=== PATIENT | male | born 1955 | race Caucasian/White ===

== ENCOUNTER 2018-07-10 19:29 | Emergency (ER) | payer BC, OTHER ==
--- NOTE | 2018-07-10 19:36 | PDOC ---
History of Present Illness - General History Source: Patient Exam Limitations: No Limitations - History of Present Illness Initial Comments: 07/10/18 20:31 The patient is a 62 year old male, with a significant PMH of HLD and HTN, who presents to the emergency department for evaluation of an abrasion to his head that occured today. The patient states he was taking out the trash when he scraped his head on a tree branch. He reports mild bleeding but no pain. The patient states he applied pressure to the area and came in to the ER for further evaluation. The patient denies chest pain, shortness of breath, headache and dizziness. Denies fever, chills, nausea, vomit, diarrhea and constipation. Denies dysuria, frequency, urgency and hematuria. PAST MEDICAL HISTORY: no significant history PAST SURGICAL HISTORY: triple bypass surgery FAMILY HISTORY: no pertinent history SOCIAL HISTORY: Pt lives with family and is employed. MEDICATIONS: reviewed ALLERGIES: As per nursing notes Adult ROS General: No fevers or chills, no weakness, no weight loss HEENT: No change in vision. No sore throat,. No ear pain CardioVascular: No chest pain or shortness of breath Respiratory:No cough, or wheezing. Gastrointestinal: no nausea, vomiting, diarrhea or constipation, No rectal bleeding Genitourinary: No dysuria, hematuria, or frequency Musculoskeletal: No joint or muscle pain or swelling Neurologic: No headache, vertigo, dizziness or loss of consciousness Psychiatric: nor depression Skin:+Laceration to the top of the head Endocrine: no increased thirst or abnormal weight change Allergic: no skin or latex allergy All other systems reviewed and normal Basic PE GENERAL: The patient is awake, alert, and fully oriented, in no acute distress. HEAD: Normal with no signs of trauma. EYES: Pupils equal, round and reactive to light, extraocular movements intact, sclera anicteric, conjunctiva clear. EXTREMITIES: Normal range of motion, no edema. NEUROLOGICAL: Normal speech, normal gait. PSYCH: Normal mood, normal affect. SKIN: +Small superficial laceration 1 cm to the top of the head with minimal bleeding. No other injury <MikeEmperatriz - Last Filed: 07/10/18 20:31> - General History Source: Patient Exam Limitations: No Limitations - History of Present Illness Initial Comments: 07/10/18 20:36 A portion of this note was documented by scribe services under my direction. I have reviewed the details of the note, within reason, and agree with the documentation. The case summary and management plan written by me. Procedure note laceration repair with Dermabond Laceration was cleaned and then closed with Dermabond patient tolerated well Assessment and plan: This is a 62-year-old male who comes in complaining of a small laceration to the top of his had laceration was closed with Dermabond patient was updated on his tetanus and discharged home <Raul David I - Last Filed: 07/10/18 20:36> - General Chief Complaint: Laceration Stated Complaint: HEAD LAC Time Seen by Provider: 07/10/18 19:36 Past History <Emperatriz Mckeon - Last Filed: 07/10/18 20:31> <Raul David I - Last Filed: 07/10/18 20:36> - Past Medical History Allergies/Adverse Reactions: Allergies Allergy/AdvReac Type Severity Reaction Status Date / Time No Known Allergies Allergy Unverified 07/10/18 19:30 Home Medications: Ambulatory Orders Amlodipine Besylate [Norvasc -] 5 mg PO DAILY 07/10/18 Aspirin [Aspirin EC] 81 mg PO DAILY 07/10/18 Atorvastatin Ca [Lipitor] 20 mg PO HS 07/10/18 Metoprolol Succinate [Toprol Xl] 50 mg PO DAILY 07/10/18 *Physical Exam - Vital Signs Last Vital Signs Temp Pulse Resp BP Pulse Ox 98.4 F 85 16 130/104 H 96 07/10/18 19:46 07/10/18 19:46 07/10/18 19:46 07/10/18 19:46 07/10/18 19:46 <Emperatriz Mckeon - Last Filed: 07/10/18 20:31> ED Treatment Course - Medications Given in the ED: ED Medications Discontinued Medications Generic Name Dose Route Start Last Admin Trade Name Freq PRN Reason Stop Dose Admin Diphtheria/Tetanus/Acell Pertussis 0.5 ml 07/10/18 20:24 07/10/18 20:29 Boostrix - IM 07/10/18 20:25 0.5 ml ONCE ONE Administration <Emperatriz Mckeon - Last Filed: 07/10/18 20:31> *DC/Admit/Observation/Transfer - Attestations Scribe Attestion: 07/10/18 20:32 Documentation prepared by Emperatriz Mckeon, acting as internist medical doctor md for Raul David MD. <Emperatriz Mckeon - Last Filed: 07/10/18 20:31> - Discharge Dispostion Decision to Admit order: No <Raul David I - Last Filed: 07/10/18 20:36> Diagnosis at time of Disposition: Scalp laceration - Discharge Dispostion Disposition: HOME Condition at time of disposition: Stable - Referrals Referrals: Larry Krishnan MD [Primary Care Provider] - - Patient Instructions Printed Discharge Instructions: DI for Laceration Repair With Dermabond Additional Instructions: Tylenol or Motrin as needed for pain. Read over and follow Dermabond discharge instructions. Return to the emergency department immediately with ANY new, persistent or worsening symptoms. Continue any medications as previously prescribed by your physician. You should follow up with your primary doctor as soon as possible regarding today's emergency department visit. . Please make sure your doctor reviews the results of your emergency evaluation. Thank you for coming to the Emergency Department today for your care. It was a pleasure to see you today. Please note that your evaluation is INCOMPLETE until you follow-up with your doctor. - Post Discharge Activity
[2018-07-10 19:55] VITALS: PULSE 85; TEMP 98.4; BMI 27.1
[2018-07-10] MEDS ORDERED: DIPHTH,PERTUSS(ACELL),TET 0.5 ML DISP.SYRIN IM ONE (20:24)
[2018-07-10 20:32] VITALS: BP 115/78
== END 2018-07-10 20:38 | disposition home or self-care (01) ==
LOC: FER 19:29
PROC: 3E0234Z Introduction of Serum, Toxoid and Vaccine into Muscle, Percutaneous Approach (ICD-10-PCS; principal; 2018-07-10)
DX: S00.91XA Abrasion of unspecified part of head, initial encounter (principal); E78.5 Hyperlipidemia, unspecified; I10 Essential (primary) hypertension; Z95.1 Presence of aortocoronary bypass graft; W22.09XA Striking against other stationary object, initial encounter; Y93.89 Activity, other specified; Y92.89 Other specified places as the place of occurrence of the external cause
CPT/HCPCS: 90715; 99281-25